=== PATIENT | male | born 1930 | race Caucasian/White ===

== ENCOUNTER → 2016-11-28 | Outpatient (CLI) | payer MEDICARE, OTHER ==
[~2016-11-28] MED LIST: ASPIRIN 81M81 MG/TA2 PO; AVAPRO300 M1 PO; CEPHALEXIN500 M1 PO; CORDARONE200 MG/TAB PO; COREG 25MG25 MG/TAB PO; COUMADIN 1MG1 MG/TAB PO; COUMADIN 22.5 MG/TAB PO; HYGROTON 2525 MG/TAB PO; LEVOXYL0.075 MG PO; LIPITOR 40MG TA40 MG PO; MASON NATURAL1200 MG PO; MASON NATURAL2000 IU PO; QUESTRAN4 GM/9 GM PO
== END ==
LOC: COL.RAD 09:45
PROVIDERS: Internal Medicine Interventional Cardiology
DX: I73.89 Other specified peripheral vascular diseases (principal); R93.6 Abnormal findings on diagnostic imaging of limbs

== ENCOUNTER 2017-04-12 12:18 | Day surgery (SDC) | payer MEDICARE, OTHER ==
[~2017-04-12] VITALS: Ht 172.7 cm; Wt 70.4 kg
[2017-04-12] VITALS (13 sets, daily range): BP systolic 125–186; BP diastolic 72–127; PULSE 59–109
[~2017-04-12 12:18] MED LIST changes: -COREG 25MG25 MG/TAB PO; -COUMADIN 1MG1 MG/TAB PO
[2017-04-12 13:28] LABS: INR 2.2 (0.8-3.0); PROTHROMBIN TIME 24.8 SECONDS (9.7-12.8)
[2017-04-12 13:36] LABS: POTASSIUM 4.9 mmol/L (3.4-5.0)
[2017-04-12] MEDS ORDERED: CORDARONE200 MG/TAB PO (13:40)
[2017-04-12] MEDS ORDERED: COREG 25MG25 MG/TAB PO (13:41)
[2017-04-12] MEDS ORDERED: COUMADIN 1MG1 MG/TAB PO (14:02)
[2017-04-12 14:10] LABS: THYROID STIMULATING HORMONE 1.03 uIU/mL (0.465-4.680)
== END 2017-04-12 17:41 | disposition home or self-care (01) ==
LOC: COL.CAR 12:18
PROVIDERS: Internal Medicine Interventional Cardiology
DX: I48.0 Paroxysmal atrial fibrillation (principal); I08.0 Rheumatic disorders of both mitral and aortic valves; I25.10 Atherosclerotic heart disease of native coronary artery without angina pectoris; E03.9 Hypothyroidism, unspecified; I73.9 Peripheral vascular disease, unspecified; Z79.01 Long term (current) use of anticoagulants; Z95.0 Presence of cardiac pacemaker; Z95.2 Presence of prosthetic heart valve; Z95.1 Presence of aortocoronary bypass graft
CPT/HCPCS: J0360; J2250; J3010; J7030

== ENCOUNTER 2017-05-29 07:02 | Outpatient (CLI) | payer MEDICARE, OTHER ==
[~2017-05-29] VITALS: Ht 172.7 cm; Wt 68.0 kg
[~2017-05-29 07:02] MED LIST changes: +COREG 25MG25 MG/TAB PO; +COUMADIN 1MG1 MG/TAB PO
[2017-05-29 07:45] VITALS: BP 125/65; PULSE 60; TEMP 97.8
[2017-05-29 09:11] VITALS: BP 147/72; PULSE 88; TEMP 97.3
[2017-05-30 00:15] LABS: CORTISOL 3O MINUTES 21 ug/dL (14-25); CORTISOL BASELINE 13 ug/dL (3-20)
[2017-05-31 12:36] LABS: ADRENOCORTICOTROPIC HORMONE 14 pg/mL (())
== END 2017-05-29 09:17 | disposition home or self-care (01) ==
LOC: EUO 07:02
PROVIDERS: Internal Medicine Interventional Cardiology
DX: R55 Syncope and collapse (principal)
CPT/HCPCS: J0834

== ENCOUNTER 2018-06-04 14:44 | Day surgery (SDC) | payer MEDICARE, OTHER ==
[2018-06-04] VITALS (7 sets, daily range): BP systolic 115–155; BP diastolic 64–102; PULSE 54–137; TEMP 97.8
[~2018-06-04] VITALS: Ht 172.8 cm; Wt 66.3 kg
[~2018-06-04 14:44] MED LIST changes: -COUMADIN 1MG1 MG/TAB PO; +COUMADIN 3MG3 MG/TAB PO
[2018-06-04 15:22] LABS: HEMOGLOBIN 11.8 g/dl (13.5-18.0); MEAN CELL VOLUME 90 fl (80.0-100.0); MEAN CORPUSCULAR HEMOGLOBIN 29 pg (27.0-31.0); MEAN CORPUSCULAR HGB CONC 32 g/dl (33.0-37.0); MEAN PLATELET VOLUME 11.2 fl (7.4-10.4); PLATELET COUNT 228 K/mm3 (130-400); RED BLOOD COUNT 4.08 M/mm3 (4.20-5.60); REDCELL DISTRIBUTION WIDTH-CV 14.1 % (11.5-14.5)
[2018-06-04 15:23] LABS: HEMATOCRIT 36.7 % (42.0-52.0)
[2018-06-04 15:35] LABS: INR 1.6 (0.8-3.0); PROTHROMBIN TIME 18.3 SECONDS (9.7-12.8)
[2018-06-04 15:49] LABS: CREATININE, serum 2.06 mg/dL (0.66-1.25); POTASSIUM 4.6 mmol/L (3.4-5.0)
[2018-06-04] MEDS ORDERED: LIPITOR 40MG TA40 MG PO (16:00)
[2018-06-04 16:01] LABS: TROPONIN-I 0.013 ng/mL (0.000-0.034)
[2018-06-04] MEDS ORDERED: cholestoff PO (16:02)
[2018-06-04] MEDS ORDERED: PACERONE400 MG PO (18:06)
[2018-06-04] MEDS ORDERED: PACERONE200 MG PO (18:06)
== END 2018-06-04 18:26 | disposition home or self-care (01) ==
LOC: COL.CAR 14:44
PROVIDERS: Internal Medicine Interventional Cardiology
DX: I48.91 Unspecified atrial fibrillation (principal); I25.10 Atherosclerotic heart disease of native coronary artery without angina pectoris; I08.0 Rheumatic disorders of both mitral and aortic valves; I49.5 Sick sinus syndrome; N18.3 Chronic kidney disease, stage 3 (moderate); I73.9 Peripheral vascular disease, unspecified; B35.9 Dermatophytosis, unspecified; Z95.1 Presence of aortocoronary bypass graft; Z95.0 Presence of cardiac pacemaker; Z79.82 Long term (current) use of aspirin; Z79.01 Long term (current) use of anticoagulants
CPT/HCPCS: J0282; J2704; J7060